=== PATIENT | male | born 1950 | race Caucasian/White ===

== ENCOUNTER 2017-11-07 08:15 | Inpatient (IN) | payer MEDICARE, MEDICAID ==
[~2017-11-07] VITALS: Ht 175.3 cm; Wt 66.0 kg
[2017-11-07] MEDS ORDERED: SODIUM CHLORIDE 0.9% 1,000 ML IV ONE (08:27)
[2017-11-07] MEDS ORDERED: ALBUTEROL/IPRATROPIUM 2.5MG/0.5MG, 3 ML NPPB SCH (08:30)
[2017-11-07] MEDS ORDERED: SODIUM CHLORIDE 0.9% 1,000ML IVBOLUS ONE (08:30)
[2017-11-07] MEDS ORDERED: SODIUM CHLORIDE FLUSH 10ML SYR IVF ONE (08:30)
[2017-11-07] MEDS ORDERED: ALBUTEROL/IPRATROPIUM 2.5MG/0.5MG, 3 ML ONE ×2 (08:49→12:38)
[2017-11-07 08:58] LABS: BASOPHILS # (AUTO) 0.02 x10^3/uL (0-0.1); BASOPHILS % (AUTO) 0 % (0-1); EOSINOPHILS % (AUTO) 0 % (1-7); LYMPHOCYTES # (AUTO) 0.46 x10^3/uL (1-3.4); LYMPHOCYTES % (AUTO) 5 % (22-44); MD NO; MEAN CORPUSCULAR HEMOGLOBIN 29.2 pg (27.5-34.5); MEAN CORPUSCULAR HGB CONC 33.4 g/dL (33.2-36.2); MEAN CORPUSCULAR VOLUME 87.3 fL (81-97); MEAN PLATELET VOLUME 6.9 fL (7.4-10.4); MONOCYTES # (AUTO) 0.61 x10^3/uL (0.2-0.8); MONOCYTES % (AUTO) 7 % (2-9); NEUTROPHILS # (AUTO) 8.01 x10^3/uL (1.8-6.8); NEUTROPHILS % (AUTO) 88 % (42-75); PLATELET COUNT 235 x10^3/uL (130-400); RED BLOOD COUNT 3.97 x10^6/uL (4.38-5.82); RED CELL DISTRIBUTION WIDTH 15.8 % (9.4-14.8)
[2017-11-07 09:10] LABS: ALBUMIN 2.7 g/dL (3.4-5.0); ANION GAP 8 mmol/L (5-15); CALCIUM 8.2 mg/dL (8.5-10.1); CHLORIDE 102 mmol/L (98-107); CREATININE 0.84 mg/dL (0.7-1.3)
[2017-11-07 09:14] LABS: TROPONIN I 0.016 ng/mL (0.000-0.045)
[2017-11-07 09:28] LABS: RAPID INFLUENZA A Negative (Negative); RAPID INFLUENZA B Negative (Negative)
[2017-11-07] MEDS ORDERED: PLEASE ENTER ALLERGIES MC SCH (09:30)
[2017-11-07] MEDS ORDERED: AZITHROMYCIN 500 MG in SODIUM CHLORIDE 0.9% 250 ML IVPB ONE (10:00)
[2017-11-07] MEDS ORDERED: SODIUM CHLORIDE FLUSH 10ML SYR IVF PRN (10:00)
[2017-11-07] MEDS ORDERED: CEFTRIAXONE PMX 1GM/50ML 50 ML IVPB ONE (10:00)
[2017-11-07] MEDS ORDERED: CEFTRIAXONE PMX 1GM/50ML 50 ML ONE (10:03)
[2017-11-07 10:44] LABS: MICROSCOPIC INDICATED
[2017-11-07 10:47] LABS: CULTURE INDICATED? YES
[2017-11-07] MEDS ORDERED: DOCUSATE 100 MG CAPSULE PO PRN (11:00)
[2017-11-07] MEDS ORDERED: ONDANSETRON 2MG/ML, 2ML IVPush PRN (11:00)
[2017-11-07] MEDS ORDERED: HYDROcodone/APAP 5/325 TABLET PO PRN (11:00)
[2017-11-07] MEDS: NICOTINE 7 MG/24 HR PATCH.TD24 TD SCH (11:00)
[2017-11-07] MEDS ORDERED: ACETAMINOPHEN 325 MG TABLET PO PRN (11:00)
[2017-11-07 11:06] LABS: ABSOLUTE RETICS # 0.037 x10^6/uL (0.5-1.5); RED BLOOD COUNT 3.94 x10^6/uL (4.38-5.82); RETICULOCYTE COUNT % 0.93 % (0.5-1.5)
[2017-11-07] MEDS ORDERED: ENOXAPARIN 40 MG/0.4 ML ONE (11:11)
[2017-11-07] MEDS: ENOXAPARIN 40 MG/0.4 ML SQ SCH (11:12)
[2017-11-07 11:44] VITALS: BP 168/80
[2017-11-07] MEDS: ALBUTEROL/IPRATROPIUM 2.5MG/0.5MG, 3 ML IPPB SCH ×3 (12:43→19:03)
[2017-11-07 16:38] LABS: TROPONIN I 0.022 ng/mL (0.000-0.045)
[2017-11-07 16:48] VITALS: BP 178/76
[2017-11-07] MEDS: hydrALAzine 20 MG/ML, 1ML IVPush PRN (16:55)
[2017-11-07 19:52] LABS: AMPHETAMINE SCREEN, URINE Negative (Negative); BARBITURATE SCREEN, URINE Negative (Negative); BENZODIAZEPINE SCREEN, URINE Negative (Negative); CANNABINOID SCREEN, URINE Negative (Negative); COCAINE SCREEN, URINE Negative (Negative); METHADONE SCREEN, URINE Negative (Negative); OPIATE SCREEN, URINE Positive (Negative)
[2017-11-07 20:50] VITALS: BP 155/77
[2017-11-07 22:30] LABS: TROPONIN I 0.027 ng/mL (0.000-0.045)
[2017-11-08] VITALS (7 sets, daily range): BP systolic 156–188; BP diastolic 60–88
[2017-11-08] MEDS: hydrALAzine 20 MG/ML, 1ML IVPush PRN ×3 (02:35→23:14)
[2017-11-08 06:00] LABS: BASOPHILS % (AUTO) 0 % (0-1); EOSINOPHILS % (AUTO) 0 % (1-7); LYMPHOCYTES % (AUTO) 8 % (22-44); MD NO; MEAN CORPUSCULAR HEMOGLOBIN 29.6 pg (27.5-34.5); MEAN CORPUSCULAR HGB CONC 33.4 g/dL (33.2-36.2); MEAN CORPUSCULAR VOLUME 88.5 fL (81-97); MEAN PLATELET VOLUME 6.8 fL (7.4-10.4); MONOCYTES # (AUTO) 0.84 x10^3/uL (0.2-0.8); MONOCYTES % (AUTO) 10 % (2-9); NEUTROPHILS # (AUTO) 7.14 x10^3/uL (1.8-6.8); NEUTROPHILS % (AUTO) 82 % (42-75); PLATELET COUNT 261 x10^3/uL (130-400); RED BLOOD COUNT 3.91 x10^6/uL (4.38-5.82); RED CELL DISTRIBUTION WIDTH 15.7 % (9.4-14.8)
[2017-11-08 06:16] LABS: CHLORIDE 100 mmol/L (98-107)
[2017-11-08 06:22] LABS: ANION GAP 10 mmol/L (5-15); CALCIUM 8.5 mg/dL (8.5-10.1); CREATININE 0.72 mg/dL (0.7-1.3)
[2017-11-08] MEDS: ALBUTEROL/IPRATROPIUM 2.5MG/0.5MG, 3 ML IPPB SCH ×4 (06:48→18:35)
[2017-11-08] MEDS ORDERED: AZITHROMYCIN 500 MG in SODIUM CHLORIDE 0.9% 250 ML IV SCH (09:00)
[2017-11-08] MEDS: CEFTRIAXONE PMX 1GM/50ML 50 ML IV SCH (09:35)
[2017-11-08] MEDS: ENOXAPARIN 40 MG/0.4 ML SQ SCH (10:34)
[2017-11-08] MEDS: POTASSIUM CHLORIDE 20 MEQ TAB.ER.PRT PO SCH ×2 (10:34→15:58)
[2017-11-08] MEDS: NICOTINE 7 MG/24 HR PATCH.TD24 TD SCH (10:34)
[2017-11-08] MEDS ORDERED: MAGNESIUM SULFATE PMX 4GM/100M 100 ML IV ONE (15:30)
[2017-11-08] MEDS ORDERED: POTASSIUM PHOSPHATE 44 MEQ in SODIUM CHLORIDE 0.9% 500 ML IV ONE (15:30)
[2017-11-08] MEDS ORDERED: hydrALAzine 20 MG/ML, 1ML ONE (23:08)
[2017-11-09 03:07] VITALS: BP 183/91
[2017-11-09] MEDS: hydrALAzine 20 MG/ML, 1ML IVPush PRN (03:17)
[2017-11-09 06:13] LABS: BASOPHILS # (AUTO) 0.02 x10^3/uL (0-0.1); BASOPHILS % (AUTO) 0 % (0-1); EOSINOPHILS % (AUTO) 0 % (1-7); LYMPHOCYTES # (AUTO) 0.87 x10^3/uL (1-3.4); LYMPHOCYTES % (AUTO) 9 % (22-44); MD NO; MEAN CORPUSCULAR HEMOGLOBIN 29.6 pg (27.5-34.5); MEAN CORPUSCULAR HGB CONC 33.8 g/dL (33.2-36.2); MEAN CORPUSCULAR VOLUME 87.5 fL (81-97); MEAN PLATELET VOLUME 6.6 fL (7.4-10.4); MONOCYTES # (AUTO) 0.98 x10^3/uL (0.2-0.8); MONOCYTES % (AUTO) 10 % (2-9); NEUTROPHILS # (AUTO) 8.05 x10^3/uL (1.8-6.8); NEUTROPHILS % (AUTO) 81 % (42-75); PLATELET COUNT 311 x10^3/uL (130-400); RED CELL DISTRIBUTION WIDTH 15.3 % (9.4-14.8)
[2017-11-09 06:26] LABS: ANION GAP 10 mmol/L (5-15); CHLORIDE 102 mmol/L (98-107)
[2017-11-09 06:27] LABS: CREATININE 0.81 mg/dL (0.7-1.3)
[2017-11-09 06:46] VITALS: BP 155/77
[2017-11-09] MEDS: ALBUTEROL/IPRATROPIUM 2.5MG/0.5MG, 3 ML IPPB SCH (07:32)
[2017-11-09] MEDS ORDERED: LISINOPRIL 10 MG TABLET ONE (09:08)
[2017-11-09] MEDS ORDERED: METOPROLOL TARTRATE 25 MG TABLET ONE (09:08)
[2017-11-09] MEDS: CEFTRIAXONE PMX 1GM/50ML 50 ML IV SCH (09:11)
[2017-11-09] MEDS ORDERED: METOPROLOL TARTRATE 25 MG TABLET PO SCH (09:30)
[2017-11-09] MEDS ORDERED: LISINOPRIL 10 MG TABLET PO SCH (09:30)
[2017-11-09] MEDS ORDERED: VANCOMYCIN PER PHARMACY MC PRN (09:30)
[2017-11-09] MEDS ORDERED: PHARMACOKINETIC MONITORING MC PRN (09:30)
[2017-11-09] MEDS ORDERED: VANCOMYCIN 1,300 MG in SODIUM CHLORIDE 0.9% 250 ML IV SCH (10:00)
== END 2017-11-09 09:43 | disposition left against medical advice (07) | DRG 177 ==
LOC: ED 09:17 → EDIP 09:47 → 4WST 11:45
PROVIDERS: ADMIT Internal Medicine; ATTEND Internal Medicine
DX: J15.211 Pneumonia due to Methicillin susceptible Staphylococcus aureus (principal); J96.01 Acute respiratory failure with hypoxia; E87.1 Hypo-osmolality and hyponatremia; N39.0 Urinary tract infection, site not specified; D64.9 Anemia, unspecified; F17.210 Nicotine dependence, cigarettes, uncomplicated; B95.61 Methicillin susceptible Staphylococcus aureus infection as the cause of diseases classified elsewhere; F12.90 Cannabis use, unspecified, uncomplicated; G89.29 Other chronic pain; I10 Essential (primary) hypertension; M54.5 Low back pain; Z83.3 Family history of diabetes mellitus; Z71.6 Tobacco abuse counseling; B96.20 Unspecified Escherichia coli [E. coli] as the cause of diseases classified elsewhere
CPT/HCPCS: 36415; 71010; 80048; 80307; 81001; 82040; 82728; 83540; 83550; 83605; 83735; 83880; 84100; 84145; 84484; 85025; 85045; 87040; 87070; 87077; 87086; 87147; 87186; 87205; 87400; 93005; 93306; 94640; 96361; 96365; 96375; J0456; J0696; J1650; J7620; G0479; J0360; J3475; J7030; J7040; J7050

== ENCOUNTER 2017-11-09 10:51 | Inpatient (IN) | payer MEDICARE, MEDICAID ==
[~2017-11-09] VITALS: Ht 175.3 cm; Wt 67.5 kg
[2017-11-09] MEDS ORDERED: ACETAMINOPHEN 500 MG TABLET ONE (11:17)
[2017-11-09] MEDS ORDERED: methylPREDNISolone SOD SUCC 125 MG/2 ML ONE (11:17)
[2017-11-09] MEDS ORDERED: CEFTRIAXONE PMX 1GM/50ML 50 ML ONE (11:17)
[2017-11-09] MEDS ORDERED: methylPREDNISolone SOD SUCC 125 MG/2 ML IVPush SCH (11:30)
[2017-11-09] MEDS ORDERED: VANCOMYCIN PER PHARMACY IV ONE (11:30)
[2017-11-09] MEDS ORDERED: ALBUTEROL/IPRATROPIUM 2.5MG/0.5MG, 3 ML NPPB ONE (11:30)
[2017-11-09] MEDS ORDERED: VANCOMYCIN 1,300 MG in SODIUM CHLORIDE 0.9% 250 ML IV SCH ×2 (11:30→12:30)
[2017-11-09] MEDS ORDERED: CEFTRIAXONE PMX 1GM/50ML 50 ML IVPB ONE (11:30)
[2017-11-09] MEDS ORDERED: ACETAMINOPHEN 500 MG TABLET PO ONE (11:30)
[2017-11-09] MEDS ORDERED: SODIUM CHLORIDE 0.9% 1,000ML IVBOLUS ONE (11:30)
[2017-11-09] MEDS ORDERED: methylPREDNISolone SOD SUCC 125 MG/2 ML IVPush ONE (14:00)
[2017-11-09] MEDS ORDERED: SODIUM CHLORIDE 0.9% 1,000 ML IV SCH (16:25)
[2017-11-09] MEDS ORDERED: ONDANSETRON 2MG/ML, 2ML IVPush PRN (16:30)
[2017-11-09] MEDS ORDERED: ACETAMINOPHEN 325 MG TABLET PO PRN (16:30)
[2017-11-09] MEDS ORDERED: GUAIFENESIN/DM 200-20MG, 10ML UDC PO PRN (16:30)
[2017-11-09] MEDS ORDERED: VANCOMYCIN PER PHARMACY MC PRN (16:30)
[2017-11-09] MEDS ORDERED: CEFTRIAXONE PMX 1GM/50ML 50 ML IV SCH (16:30)
[2017-11-09] MEDS ORDERED: HYDROcodone/APAP 5/325 TABLET PO PRN (16:30)
[2017-11-09] MEDS ORDERED: DOCUSATE 100 MG CAPSULE PO PRN (16:30)
[2017-11-09] MEDS ORDERED: NICOTINE 14MG/24 HR PATCH.TD24 TD ONE (17:00)
[2017-11-09] MEDS ORDERED: CEFTRIAXONE 1,000 MG in DEXTROSE 5% 50 ML IV SCH (17:00)
[2017-11-09] MEDS ORDERED: CEFTRIAXONE 1,000 MG in DEXTROSE 5% 50 ML IVPB SCH (17:00)
[2017-11-09 17:33] LABS: TROPONIN I < 0.015 ng/mL (0.000-0.045)
[2017-11-09 20:00] VITALS: BP_SYST 182; BP_SYST 186; BP_SYST 189; BP_DIAS 89; BP_DIAS 95
[2017-11-09] MEDS: METOPROLOL TARTRATE 25 MG TABLET PO SCH (20:04)
[2017-11-09] MEDS: ENOXAPARIN 40 MG/0.4 ML SQ SCH (20:04)
[2017-11-09] MEDS: OXYcodone/APAP 5/325MG TABLET PO PRN (21:26)
[2017-11-09] MEDS: ZOLPIDEM 5MG TABLET PO PRN (21:47)
[2017-11-09 22:31] VITALS: BP 156/85
[2017-11-09 23:19] LABS: TROPONIN I < 0.015 ng/mL (0.000-0.045)
[2017-11-10] VITALS (11 sets, daily range): BP systolic 146–193; BP diastolic 63–98
[2017-11-10] MEDS: hydrALAzine 20 MG/ML, 1ML IVPush PRN ×3 (00:39→20:12)
[2017-11-10 05:26] LABS: BASOPHILS # (AUTO) 0.01 x10^3/uL (0-0.1); BASOPHILS % (AUTO) 0 % (0-1); EOSINOPHILS % (AUTO) 0 % (1-7); LYMPHOCYTES # (AUTO) 0.65 x10^3/uL (1-3.4); LYMPHOCYTES % (AUTO) 9 % (22-44); MD NO; MEAN CORPUSCULAR HEMOGLOBIN 29.7 pg (27.5-34.5); MEAN CORPUSCULAR HGB CONC 33.7 g/dL (33.2-36.2); MEAN CORPUSCULAR VOLUME 88.1 fL (81-97); MEAN PLATELET VOLUME 6.4 fL (7.4-10.4); MONOCYTES # (AUTO) 0.53 x10^3/uL (0.2-0.8); MONOCYTES % (AUTO) 7 % (2-9); NEUTROPHILS # (AUTO) 6.18 x10^3/uL (1.8-6.8); NEUTROPHILS % (AUTO) 84 % (42-75); PLATELET COUNT 329 x10^3/uL (130-400); RED BLOOD COUNT 4.01 x10^6/uL (4.38-5.82); RED CELL DISTRIBUTION WIDTH 15.6 % (9.4-14.8)
[2017-11-10 05:31] LABS: CHLORIDE 105 mmol/L (98-107)
[2017-11-10] MEDS: METOPROLOL TARTRATE 25 MG TABLET PO SCH ×2 (05:40→17:37)
[2017-11-10 05:45] LABS: ANION GAP 10 mmol/L (5-15); CALCIUM 8.4 mg/dL (8.5-10.1); CREATININE 0.81 mg/dL (0.7-1.3); TROPONIN I < 0.015 ng/mL (0.000-0.045)
[2017-11-10] MEDS: OXYcodone/APAP 5/325MG TABLET PO PRN ×4 (06:41→20:09)
[2017-11-10] MEDS ORDERED: LISINOPRIL 10 MG TABLET PO SCH (09:00)
[2017-11-10] MEDS ORDERED: LISINOPRIL 10 MG TABLET PO ONE (11:30)
[2017-11-10] MEDS ORDERED: VANCOMYCIN 1,300 MG in SODIUM CHLORIDE 0.9% 250 ML IV SCH (12:30)
[2017-11-10] MEDS ORDERED: CEFAZOLIN PMX 2GM/50ML 50 ML IV SCH (13:00)
[2017-11-10] MEDS: CEFAZOLIN 2,000 MG in DEXTROSE 5% 50 ML IVPB SCH ×2 (13:37→20:58)
[2017-11-10 14:11] LABS: OCCULT BLOOD NEGATIVE (NEGATIVE)
[2017-11-10] MEDS: INSULIN ASPART 100 UNITS/ML, PEN SQ-INSULIN SCH ×2 (16:00→21:00)
[2017-11-10] MEDS: ENOXAPARIN 40 MG/0.4 ML SQ SCH (20:58)
[2017-11-11 01:00] VITALS: BP 166/70
[2017-11-11] MEDS: OXYcodone/APAP 5/325MG TABLET PO PRN ×4 (04:26→22:49)
[2017-11-11] MEDS: CEFAZOLIN 2,000 MG in DEXTROSE 5% 50 ML IVPB SCH ×2 (04:31→13:29)
[2017-11-11 05:14] LABS: CHLORIDE 104 mmol/L (98-107)
[2017-11-11 05:15] LABS: MEAN CORPUSCULAR HEMOGLOBIN 29.2 pg (27.5-34.5); MEAN CORPUSCULAR HGB CONC 33.3 g/dL (33.2-36.2); MEAN CORPUSCULAR VOLUME 87.8 fL (81-97); MEAN PLATELET VOLUME 6.3 fL (7.4-10.4); PLATELET COUNT 380 x10^3/uL (130-400); RED BLOOD COUNT 4.31 x10^6/uL (4.38-5.82); RED CELL DISTRIBUTION WIDTH 15.4 % (9.4-14.8)
[2017-11-11 05:22] LABS: ANION GAP 9 mmol/L (5-15); CALCIUM 8.7 mg/dL (8.5-10.1); CREATININE 0.91 mg/dL (0.7-1.3)
[2017-11-11 05:50] VITALS: BP 159/88
[2017-11-11] MEDS: METOPROLOL TARTRATE 25 MG TABLET PO SCH ×2 (05:54→17:22)
[2017-11-11 06:04] LABS: MD YES
[2017-11-11 06:05] LABS: BAND#(MANUAL) 0.39 x10^3/uL; BANDS%(MANUAL) 3 % (0-7); LYMPH#(MANUAL) 2.32 x10^3/uL (1-3.4); LYMPHS% (MANUAL) 18 % (22-44); MONOS#(MANUAL) 0.77 x10^3/uL (0.3-2.7); MONOS% (MANUAL) 6 % (2-9); MYELOCYTES# (MANUAL) 0.26 x10^3/uL (0-0); MYELOCYTES% (MANUAL) 2 % (0-0); SEG#(MANUAL) 9.16 x10^3/uL (1.8-6.8); SEGS% (MANUAL) 71 % (42-75)
[2017-11-11 06:06] LABS: <RBC MORPHOLOGY> NORMAL
[2017-11-11 06:07] LABS: <PLATELET ESTIMATE> ADEQUATE; <PLT MORPHOLOGY> NORMAL PLT MORPH
[2017-11-11] MEDS: INSULIN ASPART 100 UNITS/ML, PEN SQ-INSULIN SCH ×4 (07:00→21:00)
[2017-11-11 07:10] VITALS: BP 170/82
[2017-11-11] MEDS: LISINOPRIL 20 MG TABLET PO SCH (09:18)
[2017-11-11 12:28] VITALS: BP 165/93
[2017-11-11 20:14] VITALS: BP 166/76
[2017-11-11] MEDS ORDERED: CEFAZOLIN PMX 2GM/100ML 100 ML IVPB SCH (21:00)
[2017-11-11] MEDS: ENOXAPARIN 40 MG/0.4 ML SQ SCH (21:30)
[2017-11-11] MEDS: CEFAZOLIN PMX 2GM/50ML 50 ML IVPB SCH (21:30)
[2017-11-11] MEDS: ZOLPIDEM 5MG TABLET PO PRN (22:49)
[2017-11-12 00:39] VITALS: BP 159/87
[2017-11-12] MEDS: METOPROLOL TARTRATE 25 MG TABLET PO SCH ×2 (05:07→18:29)
[2017-11-12] MEDS: OXYcodone/APAP 5/325MG TABLET PO PRN ×3 (05:08→18:28)
[2017-11-12] MEDS: CEFAZOLIN PMX 2GM/50ML 50 ML IVPB SCH ×3 (05:10→20:55)
[2017-11-12] MEDS: INSULIN ASPART 100 UNITS/ML, PEN SQ-INSULIN SCH ×4 (07:00→20:50)
[2017-11-12 08:00] VITALS: BP 140/70
[2017-11-12] MEDS: LISINOPRIL 20 MG TABLET PO SCH (08:25)
[2017-11-12 14:00] VITALS: BP 134/78
[2017-11-12 20:35] VITALS: BP 128/76
[2017-11-12] MEDS: ENOXAPARIN 40 MG/0.4 ML SQ SCH (20:55)
[2017-11-12] MEDS: ZOLPIDEM 5MG TABLET PO PRN (22:15)
[2017-11-13 00:01] VITALS: BP 139/77
[2017-11-13] MEDS: OXYcodone/APAP 5/325MG TABLET PO PRN ×4 (00:58→23:32)
[2017-11-13 05:04] VITALS: BP 138/74
[2017-11-13] MEDS: CEFAZOLIN PMX 2GM/50ML 50 ML IVPB SCH ×3 (05:06→20:28)
[2017-11-13] MEDS: METOPROLOL TARTRATE 25 MG TABLET PO SCH ×2 (05:06→17:57)
[2017-11-13] MEDS: INSULIN ASPART 100 UNITS/ML, PEN SQ-INSULIN SCH (07:00)
[2017-11-13] MEDS: LISINOPRIL 20 MG TABLET PO SCH (07:52)
[2017-11-13 07:58] VITALS: BP 135/76
[2017-11-13 14:05] VITALS: BP 137/70
[2017-11-13] MEDS: ENOXAPARIN 40 MG/0.4 ML SQ SCH (20:28)
[2017-11-13 20:35] VITALS: BP 139/72
[2017-11-14] MEDS: ZOLPIDEM 5MG TABLET PO PRN ×2 (00:45→23:10)
[2017-11-14 02:27] VITALS: BP 154/74
[2017-11-14 05:14] VITALS: BP 157/73
[2017-11-14] MEDS: CEFAZOLIN PMX 2GM/50ML 50 ML IVPB SCH ×3 (05:15→20:53)
[2017-11-14] MEDS: METOPROLOL TARTRATE 25 MG TABLET PO SCH ×2 (05:15→17:38)
[2017-11-14 05:30] LABS: BASOPHILS # (AUTO) 0.04 x10^3/uL (0-0.1); BASOPHILS % (AUTO) 0 % (0-1); EOSINOPHILS % (AUTO) 2 % (1-7); HCT (SEDRATE) 37.8 % (39.2-51.8); LYMPHOCYTES # (AUTO) 2.84 x10^3/uL (1-3.4); LYMPHOCYTES % (AUTO) 22 % (22-44); MD NO; MEAN CORPUSCULAR HEMOGLOBIN 29.4 pg (27.5-34.5); MEAN CORPUSCULAR HGB CONC 33.2 g/dL (33.2-36.2); MEAN CORPUSCULAR VOLUME 88.7 fL (81-97); MEAN PLATELET VOLUME 6.4 fL (7.4-10.4); MONOCYTES # (AUTO) 1.11 x10^3/uL (0.2-0.8); MONOCYTES % (AUTO) 8 % (2-9); NEUTROPHILS # (AUTO) 8.99 x10^3/uL (1.8-6.8); NEUTROPHILS % (AUTO) 68 % (42-75); PLATELET COUNT 401 x10^3/uL (130-400); RED BLOOD COUNT 4.26 x10^6/uL (4.38-5.82); RED CELL DISTRIBUTION WIDTH 15.8 % (9.4-14.8)
[2017-11-14 05:33] LABS: CHLORIDE 103 mmol/L (98-107)
[2017-11-14 05:45] LABS: ALANINE AMINOTRANSFERASE 50 U/L (12-78); ALBUMIN 2.5 g/dL (3.4-5.0); ALKALINE PHOSPHATASE 121 U/L (45-117); ANION GAP 4 mmol/L (5-15); BILIRUBIN,TOTAL 0.3 mg/dL (0.2-1.0); C-REACTIVE PROTEIN, QUANT 0.58 mg/dL (0.02-0.49); CALCIUM 8.5 mg/dL (8.5-10.1); CREATININE 1.09 mg/dL (0.7-1.3); TOTAL PROTEIN 7.2 g/dL (6.4-8.2)
[2017-11-14 06:11] LABS: SEDIMENTATION RATE 56 mm/hr (0-10)
[2017-11-14] MEDS: LISINOPRIL 20 MG TABLET PO SCH (07:55)
[2017-11-14] MEDS: OXYcodone/APAP 5/325MG TABLET PO PRN ×3 (07:55→20:54)
[2017-11-14 08:05] VITALS: BP 153/76
[2017-11-14] MEDS ORDERED: OMNIPAQUE 350 MG/ML, 75ML BOTTLE ONE (09:09)
[2017-11-14] MEDS ORDERED: GADOBUTROL 7.5 MMOL/7.5 ML PFS ONE (10:00)
[2017-11-14 14:36] VITALS: BP 133/66
[2017-11-14 17:37] VITALS: BP 142/71
[2017-11-14 19:37] VITALS: BP 166/72
[2017-11-14] MEDS: ENOXAPARIN 40 MG/0.4 ML SQ SCH (20:54)
[2017-11-15 01:30] VITALS: BP 146/73
[2017-11-15 05:11] VITALS: BP 118/67
[2017-11-15] MEDS: CEFAZOLIN PMX 2GM/50ML 50 ML IVPB SCH ×3 (05:14→20:43)
[2017-11-15] MEDS: METOPROLOL TARTRATE 25 MG TABLET PO SCH ×2 (05:14→18:03)
[2017-11-15 05:39] LABS: BASOPHILS # (AUTO) 0.04 x10^3/uL (0-0.1); BASOPHILS % (AUTO) 0 % (0-1); EOSINOPHILS # (AUTO) 0.05 x10^3/uL (0-0.4); EOSINOPHILS % (AUTO) 1 % (1-7); LYMPHOCYTES # (AUTO) 2.96 x10^3/uL (1-3.4); LYMPHOCYTES % (AUTO) 29 % (22-44); MD NO; MEAN CORPUSCULAR HGB CONC 32.9 g/dL (33.2-36.2); MEAN CORPUSCULAR VOLUME 88.1 fL (81-97); MEAN PLATELET VOLUME 6.6 fL (7.4-10.4); MONOCYTES # (AUTO) 1.04 x10^3/uL (0.2-0.8); MONOCYTES % (AUTO) 10 % (2-9); NEUTROPHILS # (AUTO) 6.27 x10^3/uL (1.8-6.8); NEUTROPHILS % (AUTO) 61 % (42-75); PLATELET COUNT 405 x10^3/uL (130-400); RED BLOOD COUNT 4.13 x10^6/uL (4.38-5.82); RED CELL DISTRIBUTION WIDTH 15.8 % (9.4-14.8)
[2017-11-15 07:44] VITALS: BP 145/63
[2017-11-15] MEDS: LISINOPRIL 20 MG TABLET PO SCH (08:57)
[2017-11-15] MEDS: OXYcodone/APAP 5/325MG TABLET PO PRN (08:57)
[2017-11-15 12:16] VITALS: BP 112/60
[2017-11-15] MEDS ORDERED: FLU VACC QS2017-18 (36MOS+) UP/PF 0.5 ML IM-VACC ONE (16:00)
[2017-11-15] MEDS ORDERED: PNEUMOC 13-VALENT VACC, 0.5 ML IM-VACC ONE (16:00)
[2017-11-15 18:02] VITALS: BP 137/74
[2017-11-15 19:33] VITALS: BP 150/68
[2017-11-15] MEDS: ENOXAPARIN 40 MG/0.4 ML SQ SCH (20:43)
[2017-11-15] MEDS: ZOLPIDEM 5MG TABLET PO PRN (20:45)
[2017-11-16] MEDS: OXYcodone/APAP 5/325MG TABLET PO PRN ×2 (02:10→12:33)
[2017-11-16 02:58] VITALS: BP 156/70
[2017-11-16] MEDS: METOPROLOL TARTRATE 25 MG TABLET PO SCH (05:31)
[2017-11-16] MEDS: CEFAZOLIN PMX 2GM/50ML 50 ML IVPB SCH ×2 (05:32→13:10)
[2017-11-16 08:03] VITALS: BP 129/69
[2017-11-16] MEDS: LISINOPRIL 20 MG TABLET PO SCH (09:07)
[2017-11-16 13:54] VITALS: BP 129/62
[2017-11-16] MEDS ORDERED: ERTA1VIA IV (15:41)
[2017-11-16] MEDS ORDERED: METO25TA35 PO (15:42)
[2017-11-16] MEDS ORDERED: LISI-170 PO (15:42)
== END 2017-11-16 19:01 | disposition home or self-care (01) | DRG 871 ==
LOC: ED 12:10 → EDIP 12:15 → ED 12:37 → 4WST 15:22
PROVIDERS: ADMIT Internal Medicine; ATTEND Family Medicine
PROC: 02HV33Z Insertion of Infusion Device into Superior Vena Cava, Percutaneous Approach (ICD-10-PCS; principal; 2017-11-16)
PROC: B5181ZA Fluoroscopy of Superior Vena Cava using Low Osmolar Contrast, Guidance (ICD-10-PCS; 2017-11-16)
PROC: B548ZZA Ultrasonography of Superior Vena Cava, Guidance (ICD-10-PCS; 2017-11-16)
DX: A41.01 Sepsis due to Methicillin susceptible Staphylococcus aureus (principal); J96.90 Respiratory failure, unspecified, unspecified whether with hypoxia or hypercapnia; J15.20 Pneumonia due to staphylococcus, unspecified; N30.90 Cystitis, unspecified without hematuria; B96.20 Unspecified Escherichia coli [E. coli] as the cause of diseases classified elsewhere; B96.89 Other specified bacterial agents as the cause of diseases classified elsewhere; D64.9 Anemia, unspecified; F12.90 Cannabis use, unspecified, uncomplicated; I10 Essential (primary) hypertension; G89.29 Other chronic pain; E11.65 Type 2 diabetes mellitus with hyperglycemia; F17.210 Nicotine dependence, cigarettes, uncomplicated; J01.30 Acute sphenoidal sinusitis, unspecified; Z79.899 Other long term (current) drug therapy; Z83.3 Family history of diabetes mellitus; Z98.1 Arthrodesis status
CPT/HCPCS: 36415; 36569; 70450; 71010; 71260; 72157; 72158; 76937; 77001; 80048; 80053; 82272; 82962; 83036; 83735; 84100; 84484; 85025; 85651; 86140; 86480; 86635; 86698; 87070; 87205; 90686; 93005; 96361; 96365; 96366; 96368; 96375; A9585; J0690; J0696; J1650; J3370; Q9967; C1751; G0009; J0360; J2930; J7030; J7050